=== PATIENT | female | born 2000 | race African-American/Black ===

== ENCOUNTER 2022-12-21 14:31 | Emergency (ER) | payer BC, OTHER ==
[~2022-12-21] VITALS: Ht 167.6 cm; Wt 59.0 kg
--- NOTE | 2022-12-21 15:00 | NUR ---
RECEIVED PT 22 YRS FMALE WALKING IN FROM HOME C/O LACERATION ON LT midle finger got cut was at 10 am today dressing intact no active bleeding
--- NOTE | 2022-12-21 15:06 | NUR ---
X RAY DONE AT BED SIDE
[2022-12-21] MEDS ORDERED: TDAP [DIPH/PERTUSSIS/TET] 0.5 ML VIAL IM ONE (15:11)
[2022-12-21] MEDS: TDAP [DIPH/PERTUSSIS/TET] 0.5 ML VIAL IM ONE (15:31)
[2022-12-21] MEDS ORDERED: LIDOCAINE 1% INJ 50 ML MDV IJ ONE (15:34)
--- NOTE | 2022-12-21 15:35 | NUR ---
TD SHATE DONE AT BED SIDED NO REACTION
--- NOTE | 2022-12-21 15:45 | NUR ---
AT BED SIDE FOR DAGO DONE AT BED SIDE IRRGATION WAS DONE BY ED TACH
--- NOTE | 2022-12-21 16:05 | NUR ---
DRESSING APPLED AND FINGER SPLENT WAS DONE
--- NOTE | 2022-12-21 16:25 | NUR ---
Patient discharged to home in stable condition. Written and verbal after care instructions given. Patient verbalizes understanding of instruction.
[2022-12-21 16:39] VITALS: BP 111/74
== END 2022-12-21 16:39 | disposition home or self-care (01) ==
LOC: ER 14:48
DX: S61.215A Laceration without foreign body of left ring finger without damage to nail, initial encounter (principal); W25.XXXA Contact with sharp glass, initial encounter; Y93.89 Activity, other specified; Y92.89 Other specified places as the place of occurrence of the external cause; Y99.8 Other external cause status
CPT/HCPCS: 99283; 12001; 90471; 90715; 73140; J3490; A6403 ×2